=== PATIENT | female | born 1945 | race Caucasian/White ===

== ENCOUNTER → 2017-12-21 | Outpatient (CLI) | payer MEDICARE ==
[~2017-12-21] MED LIST: AMBIEN 10MG10 MG PO; ASPIRIN 81M81 MG/TA2 PO; B-121000 MCG PO; DIFLUCAN50 MG PO; FISH OIL 1000MG1 CAP PO; FLEXERIL 1010 MG/TAB PO; LIPITOR 10MG10 MG PO; NAPROSYN500 MG PO; PRIL40 PO; ULTRAM 50MG TAB50 MG PO; WELLBUTRIN SR150 M1 PO; ZESTORETIC 25 M1 TAB PO
== END ==
LOC: COL.RAD 10:51
DX: M46.96 Unspecified inflammatory spondylopathy, lumbar region (principal); M41.86 Other forms of scoliosis, lumbar region

== ENCOUNTER 2018-04-05 15:48 | Emergency (ER) | payer MEDICARE ==
[~2018-04-05] VITALS: Ht 152.4 cm; Wt 53.6 kg
[2018-04-05] MEDS ORDERED: LEXAPRO 5MG5 MG PO (16:43)
[2018-04-05] MEDS ORDERED: VENTOLIN0.09 MG IH (16:44)
[2018-04-05] MEDS ORDERED: NORCO 325 MG-51 TAB PO (18:11)
[2018-04-05 18:22] VITALS: BP 119/72; PULSE 91; TEMP 97.5
== END 2018-04-05 18:22 | disposition home or self-care (01) ==
LOC: COL.ER 15:48
DX: S39.011A Strain of muscle, fascia and tendon of abdomen, initial encounter (principal); J44.9 Chronic obstructive pulmonary disease, unspecified; M19.90 Unspecified osteoarthritis, unspecified site; M81.0 Age-related osteoporosis without current pathological fracture; Z87.891 Personal history of nicotine dependence; X50.0XXA Overexertion from strenuous movement or load, initial encounter; Y92.009 Unspecified place in unspecified non-institutional (private) residence as the place of occurrence of the external cause

== ENCOUNTER 2018-04-22 18:01 | Emergency (ER) | payer MEDICARE ==
[~2018-04-22] VITALS: Ht 162.6 cm; Wt 56.4 kg
[~2018-04-22 18:01] MED LIST changes: +LEXAPRO 5MG5 MG PO; +NORCO 325 MG-51 TAB PO; +VENTOLIN0.09 MG IH
[2018-04-22 18:10] VITALS: TEMP 98.7
[2018-04-22 19:11] LABS: COLLECTION METHOD CLEAN CATCH
[2018-04-22 19:54] LABS: PH 7 (5-8); SQUAMOUS EPITHELIAL None Seen /hpf; URINE APPEARANCE Cloudy; URINE BACTERIA None Seen /hpf; URINE BILIRUBIN Negative (NEGATIVE); URINE BLOOD 3+ (NEGATIVE); URINE COLOR Red; URINE GLUCOSE Negative (NEGATIVE); URINE KETONE Negative (NEGATIVE); URINE LEUKOCYTE ESTERASE 3+ (NEGATIVE); URINE NITRATE Negative (NEGATIVE); URINE PROTEIN(semi-quant) 2+ (NEGATIVE); URINE RBC >50 /hpf; URINE UROBILINOGEN Negative (NEGATIVE)
[2018-04-22] MEDS ORDERED: BACTRIM DS 8001 TAB PO (20:25)
[2018-04-22 20:39] VITALS: BP 128/64; PULSE 80
== END 2018-04-22 20:39 | disposition home or self-care (01) ==
LOC: COL.ER 18:01
PROVIDERS: Nurse Practitioner
DX: N39.0 Urinary tract infection, site not specified (principal); J44.9 Chronic obstructive pulmonary disease, unspecified; Z90.710 Acquired absence of both cervix and uterus; Z90.49 Acquired absence of other specified parts of digestive tract; Z90.89 Acquired absence of other organs; Z87.891 Personal history of nicotine dependence; Z79.82 Long term (current) use of aspirin

== ENCOUNTER → 2018-06-20 | Outpatient (CLI) | payer MEDICARE ==
[~2018-06-20] MED LIST changes: +BACTRIM DS 8001 TAB PO
== END ==
LOC: COL.PUL 11:06
DX: R06.02 Shortness of breath (principal); Z87.891 Personal history of nicotine dependence
CPT/HCPCS: J7674